=== PATIENT | male | born 1975 | race Two or more races ===

== ENCOUNTER 2017-08-01 19:29 | Emergency (ER) | payer MEDICAID ==
[~2017-08-01] VITALS: Ht 175.3 cm; Wt 100.7 kg
[~2017-08-01 19:29] MED LIST: HYDR-1421 OR; IBU800T PO
[2017-08-01 19:35] VITALS: BP 172/73
[2017-08-01] MEDS ORDERED: methylPREDNISolone SOD SUCC 125 MG/2 ML VL IM ONE (21:30)
[2017-08-01] MEDS ORDERED: KETOROLAC TROMETH 60MG/2ML VIAL IM ONE (21:30)
== END 2017-08-01 22:05 | disposition home or self-care (01) ==
LOC: ER 19:29
DX: S40.012A Contusion of left shoulder, initial encounter (principal); G89.29 Other chronic pain; M54.5 Low back pain; F17.210 Nicotine dependence, cigarettes, uncomplicated; F12.10 Cannabis abuse, uncomplicated; V49.49XA Driver injured in collision with other motor vehicles in traffic accident, initial encounter; Y93.89 Activity, other specified; Y99.8 Other external cause status; Y92.410 Unspecified street and highway as the place of occurrence of the external cause
CPT/HCPCS: 96372; 99284; J1885; J2930

== ENCOUNTER 2018-05-25 09:04 | Emergency (ER) | payer MEDICAID ==
[~2018-05-25] VITALS: Ht 165.1 cm; Wt 99.8 kg
[2018-05-25 10:10] VITALS: BP 127/78
== END 2018-05-25 10:40 | disposition home or self-care (01) ==
LOC: ER 09:10
DX: S90.211A Contusion of right great toe with damage to nail, initial encounter (principal); H10.89 Other conjunctivitis; F17.210 Nicotine dependence, cigarettes, uncomplicated; W20.8XXA Other cause of strike by thrown, projected or falling object, initial encounter; Y93.89 Activity, other specified; Y99.8 Other external cause status; Y92.89 Other specified places as the place of occurrence of the external cause
CPT/HCPCS: 73630